=== PATIENT | male | born 1975 | race American Indian/Alaskan Native ===

== ENCOUNTER 2019-04-28 12:31 | Emergency (ER) | payer SELFPAY ==
--- NOTE | 2019-04-28 13:41 | Emergency Department Report ---
ED Fever HPI - General Stated Complaint: HEADACHE/SORE THROAT Time Seen by Provider: 04/28/19 13:32 Source: patient Exam Limitations: no limitations - History of Present Illness Initial Comments: Mr. Ogden is a healthy 43 yo male without significant past medical history who presents with several days of fever headache sore throat body aches. He denies cough. He works at [employer]. He cleans patient rooms. He did not have a specific patient contact with known infection such as COVID 19. He came by EMS because he was too weak to drive to the hospital. Denies travel. Mr. Ogden did receive flu vaccine this season. Timing/Duration: other (Several days) Fever Severity/Quality: subjective Associated Symptoms: headache, muscle aches, sore throat, other (Chills) ED Review of Systems ROS: Stated complaint: HEADACHE/SORE THROAT Other details as noted in HPI Comment: All other systems reviewed and negative Constitutional: fever, malaise ENT: throat pain Respiratory: denies: cough, shortness of breath Neurological: headache ED Past Medical Hx - Past Medical History Previous Medical History?: No - Surgical History Past Surgical History?: Yes Hx Appendectomy: Yes - Social History Smoking Status: Former Smoker Substance Use Type: None ED Physical Exam - General General appearance: alert, in no apparent distress - Head Head exam: Present: atraumatic, normocephalic - Eye Eye exam: Present: normal appearance - ENT ENT exam: Present: mucous membranes moist - Neck Neck exam: Present: normal inspection, full ROM - Respiratory Respiratory exam: Present: normal lung sounds bilaterally. Absent: respiratory distress, wheezes, rales, rhonchi - Cardiovascular Cardiovascular Exam: Present: normal rhythm, tachycardia, normal heart sounds. Absent: systolic murmur, diastolic murmur, rubs, gallop - GI/Abdominal GI/Abdominal exam: Present: soft, normal bowel sounds. Absent: distended, tenderness, guarding, rebound - Rectal Rectal exam: Present: deferred - Extremities Exam Extremities exam: Present: normal inspection - Neurological Exam Neurological exam: Present: alert, oriented X3 - Psychiatric Psychiatric exam: Present: normal affect, normal mood - Skin Skin exam: Present: warm, dry, intact, normal color. Absent: rash ED Course Vital Signs 04/28/19 04/28/19 04/28/19 13:14 13:16 13:18 Temperature 103.0 F H Pulse Rate 108 H 109 H Respiratory 19 19 Rate Blood Pressure 141/87 O2 Sat by Pulse 98 97 Oximetry 04/28/19 04/28/19 04/28/19 13:20 13:30 13:45 Temperature Pulse Rate 111 H 104 H Respiratory 14 15 Rate Blood Pressure 133/94 139/89 O2 Sat by Pulse 98 94 91 Oximetry 04/28/19 14:00 Temperature Pulse Rate 109 H Respiratory 16 Rate Blood Pressure 139/88 O2 Sat by Pulse 94 Oximetry ED Medical Decision Making - Lab Data Result diagrams: 04/28/19 13:46 04/28/19 13:46 Laboratory Results - last 24 hr 04/28/19 04/28/19 04/28/19 13:46 13:46 15:24 WBC 8.8 RBC 5.23 H Hgb 16.0 H Hct 47.4 H MCV 91 MCH 31 MCHC 34 RDW 13.5 Plt Count 183 [place] % (Auto) Casting Machine Adjuster Add Manual Diff Complete Total Counted 100 Seg Neuts % (Manual) 82.0 H Band Neutrophils % 0 Lymphocytes % (Manual) 9.0 L Reactive Lymphs % (Man) 0 Monocytes % (Manual) 9.0 H Eosinophils % (Manual) 0 Basophils % (Manual) 0 Metamyelocytes % 0 Myelocytes % 0 Promyelocytes % 0 Blast Cells % 0 Nucleated RBC % Not Reportable Seg Neutrophils # Man 7.2 Band Neutrophils # 0.0 Lymphocytes # (Manual) 0.8 L Abs React Lymphs (Man) 0.0 Monocytes # (Manual) 0.8 Eosinophils # (Manual) 0.0 Basophils # (Manual) 0.0 Metamyelocytes # 0.0 Myelocytes # 0.0 Promyelocytes # 0.0 Blast Cells # 0.0 WBC Morphology Not Reportable Hypersegmented Neuts Not Reportable Hyposegmented Neuts Not Reportable Hypogranular Neuts Not Reportable Smudge Cells Not Reportable Toxic Granulation Not Reportable Toxic Vacuolation Not Reportable Dohle Bodies Not Reportable Pelger-Huet Anomaly Not Reportable Helen Rods Not Reportable Platelet Estimate Consistent w auto Clumped Platelets Not Reportable Plt Clumps, EDTA Not Reportable Large Platelets Not Reportable Giant Platelets Not Reportable Platelet Satelliting Not Reportable Plt Morphology Comment Not Reportable RBC Morphology Not Reportable Dimorphic RBCs Not Reportable Polychromasia Not Reportable Hypochromasia Not Reportable Poikilocytosis Not Reportable Anisocytosis 1+ Microcytosis Not Reportable Macrocytosis Not Reportable Spherocytes Not Reportable Pappenheimer Bodies Not Reportable Sickle Cells Not Reportable Target Cells Not Reportable Tear Drop Cells Not Reportable Ovalocytes Not Reportable Helmet Cells Not Reportable [place] Bodies Not Reportable [place] Rings Not Reportable [place] Cells Not Reportable Bite Cells Not Reportable Crenated Cell Not Reportable Elliptocytes Not Reportable Acanthocytes (Spur) Not Reportable Rouleaux Not Reportable Hemoglobin C Crystals Not Reportable Schistocytes Not Reportable Malaria parasites Not Reportable Andrea Bodies Not Reportable Hem Pathologist Commnt No Sodium 131 L Potassium 3.9 Chloride 90.6 L Carbon Dioxide 24 Anion Gap 20 BUN 14 Creatinine 0.9 Estimated GFR > 60 BUN/Creatinine Ratio 16 Glucose 98 Calcium 9.7 Total Bilirubin 0.70 AST 18 ALT 21 Alkaline Phosphatase 78 Total Protein 7.9 Albumin 4.3 Albumin/Globulin Ratio 1.2 Influenza A (Rapid) Negative Influenza B (Rapid) Negative - Medical Decision Making 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 He presents with viral syndrome and fever headache sore throat body aches. He denies cough. Denies shortness of breath. No confirmed COVID 19 exposure. However rapid flu test is negative. CBC did reveal decreased lymphocyte count. I advised him to self quarantine for the next 14 days or until he is contacted by the department of health. My colleague assisted by performing a person under investigation encouraged with our local Department of Health. We have requested testing for this gentleman in order to expedite his return to work. 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 Critical care attestation.: If time is entered above; I have spent that time in minutes in the direct care of this critically ill patient, excluding procedure time. ED Disposition Clinical Impression: Viral syndrome Disposition: DC-01 TO HOME OR SELFCARE Is pt being admited?: No Does the pt Need Aspirin: No Condition: Stable Additional Instructions: You are at risk for coronavirus infection. Please stay at home for the next 14 days. 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 You may be contacted by [facility] for further information. Referrals: PRIMARY CARE, [Primary Care Provider] - 3-5 Days
[2019-04-28] MEDS ORDERED: IBUPROFEN 800 MG TAB PO ONE (13:42)
[2019-04-28] MEDS ORDERED: SODIUM CHLORIDE 0.9% 1000 ML 1,000 ML IV ONE ×2 (13:42→15:45)
[2019-04-28 13:56] LABS: Hematocrit 47.4 % (35.5-45.6); Mean Corpuscular HGB Conc 34 % (32-34); Mean Corpuscular Volume 91 fl (84-94); Platelet Count 183 K/mm3 (140-440); Red Blood Count 5.23 M/mm3 (3.65-5.03); Red Cell Distribution Width 13.5 % (13.2-15.2)
[2019-04-28 14:20] LABS: Alanine Aminotransferase 21 units/L (7-56); Albumin 4.3 g/dL (3.9-5); BUN/Creatinine Ratio 16; Blood Urea Nitrogen 14 mg/dL (9-20); Calcium 9.7 mg/dL (8.4-10.2); Hemolysis Index 16
[2019-04-28 14:41] LABS: Basophils % (Manual) 0 % (0.0-1.8); Eosinophils % (Manual) 0 % (0.0-4.3); Total Cells Counted 100
[2019-04-28 14:42] LABS: Anisocytosis 1+; Platelet Estimate Consistent w Auto
--- NOTE | 2019-04-28 14:44 | XRay Report ---
CHEST 1 VIEW INDICATION / CLINICAL INFORMATION: fever. COMPARISON: None available. FINDINGS: SUPPORT DEVICES: None. HEART / MEDIASTINUM: No significant abnormality. LUNGS / PLEURA: No significant pulmonary or pleural abnormality.. No pneumothorax. ADDITIONAL FINDINGS: No significant additional findings. IMPRESSION: 1. No acute findings. Signer Name: Chi Hall MD Signed: 04/28/2019 2:39 PM Workstation Name: [id number]
[2019-04-28 18:18] VITALS: BP 140/86
== END 2019-04-28 18:00 | disposition home or self-care (01) ==
LOC: ED 12:31
DX: B34.9 Viral infection, unspecified (principal); Z87.891 Personal history of nicotine dependence; Z90.49 Acquired absence of other specified parts of digestive tract
CPT/HCPCS: 36415; 71045; 80053; 85007; 85025; 87400; 99284; J7030